=== PATIENT | male | born 1945 | race Two or more races ===

== ENCOUNTER → 2021-06-10 | Outpatient (CLI) | payer OTHER ==
[~2021-06-10] MED LIST: AMLO-496; ATOR10TA52; CARV6.2551; CLOP75TA70; LISI40TA11; METF-370
== END | disposition home or self-care (01) ==
LOC: LAB 15:44
PROVIDERS: ATTEND Internal Medicine
DX: E11.9 Type 2 diabetes mellitus without complications (principal); N40.0 Benign prostatic hyperplasia without lower urinary tract symptoms
CPT/HCPCS: 36415; 83036; 84153; 84154

== ENCOUNTER 2023-02-14 20:08 | Inpatient (IN) | payer OTHER ==
[~2023-02-14] VITALS: Ht 172.7 cm; Wt 68.0 kg
[~2023-02-14 20:08] MED LIST changes: -AMLO-496; +AMLO1TAB23; -ATOR10TA52; +ATOR10TA52 PO; -CARV6.2551; +CARV6.2551 PO; -CLOP75TA70; +CLOP75TA70 PO; -LISI40TA11; +LISI40TA16 PO
[2023-02-14] MEDS ORDERED: SODIUM CHLORIDE 0.9% 1,000 ML IV ONE (20:45)
[2023-02-14] MEDS ORDERED: ONDANSETRON HCL 4 MG/2 ML VIAL IV ONE (20:45)
[2023-02-14] MEDS ORDERED: MORPHINE SULFATE 4 MG/ML SYR/VIAL IV ONE (20:45)
[2023-02-14 22:08] LABS: Basophils # (auto) 0 10 ^3/uL (0-0.2); Basophils % (auto) 0.2 % (0.0-2.0); Eosinophils # (auto) 0 10 ^3/uL (0-0.8); Eosinophils % (auto) 0.3 % (0.0-7.0); Hematocrit 50.6 % (41.0-53.0); Lymphocytes # (auto) 1.6 10 ^3/uL (0.4-5.4); Lymphocytes % (auto) 11.9 % (10.0-50.0); Mean Corpuscular Hgb Conc. 33.5 g/dL (32.0-36.0); Mean Corpuscular Volume 92.6 fL (80.0-100.0); Monocytes # (auto) 1.2 10 ^3/uL (0-1.3); Monocytes % (auto) 9.3 % (0.0-12.0); Neutrophils # (auto) 10.3 10 ^3/uL (1.6-8.6); Neutrophils % (auto) 78.3 % (37.0-80.0); Red Blood Cells 5.47 10^6/uL (4.5-5.90); Red Cell Distribution Width 14.8 % (11.8-14.3); White Blood Cell 13.1 10^3/uL (4.4-10.8)
[2023-02-14 22:20] LABS: Lactic Acid w/Reflex 2.5 mmol/L (0.4-2.0)
[2023-02-14 22:25] LABS: INR 1.1 (0.9-1.15); Prothrombin Time 11.5 sec (9.3-11.8)
[2023-02-14 22:47] LABS: Albumin 4.7 g/dL (3.2-4.8); Alkaline Phosphatase 93 U/L (46-116); Aspartate Aminotransferase < 8 U/L (13-40); BUN/Creatinine Ratio 6.6 (10.0-20.0); Blood Urea Nitrogen 8 mg/dL (9-23); Calcium 9.6 mg/dL (8.7-10.4); Carbon Dioxide 18.2 mmol/L (20-30); Glucose 161 mg/dL (74-106); Lipase 38 U/L (12-53); Magnesium 1.9 mg/dL (1.6-2.6)
[2023-02-14 22:48] LABS: Bilirubin, Total 1.8 mg/dL (0.2-1.0); Total Protein 7.8 g/dL (5.7-8.2)
[2023-02-14 23:03] LABS: Alanine Aminotransferase < 9 U/L (7-40)
[2023-02-14 23:06] LABS: Anion Gap 12.8 (5-15); Chloride 104 mmol/L (98-107); Potassium 3.7 mmol/L (3.5-5.1); Sodium 135 mmol/L (136-145)
[2023-02-15] MEDS ORDERED: MORPHINE SULFATE INJ 2 MG/ml SYRG IV PRN (02:45)
[2023-02-15] MEDS ORDERED: NITROGLYCERIN 0.4 MG SL TAB SL PRN (02:45)
[2023-02-15] MEDS ORDERED: hydrALAZINE HCL 20 MG/ML VL IV PRN (02:45)
[2023-02-15] MEDS ORDERED: ONDANSETRON HCL 4 MG/2 ML VIAL IV PRN (02:45)
[2023-02-15] MEDS: SODIUM CHLORIDE 0.9% 1,000 ML IV SCH ×3 (02:45→23:59)
[2023-02-15 08:00] VITALS: PULSE 56; RESP 16; O2SAT 96
[2023-02-15] MEDS ORDERED: SODIUM CHLORIDE 0.9% 1,900 ML IV ONE (08:00)
[2023-02-15] MEDS: MORPHINE SULFATE INJ 2 MG/ml SYRG IV PRN (08:41)
[2023-02-15] MEDS ORDERED: IOHEXOL 300 MG/ML 100ML BOTTLE IJ ONE (09:43)
[2023-02-15] MEDS: PANTOPRAZOLE 40 MG/10 ML VIAL INJ IV SCH (10:01)
[2023-02-15 10:39] LABS: Basophils # (auto) 0 10 ^3/uL (0-0.2); Basophils % (auto) 0.3 % (0.0-2.0); Eosinophils # (auto) 0.2 10 ^3/uL (0-0.8); Eosinophils % (auto) 2.4 % (0.0-7.0); Hematocrit 39.9 % (41.0-53.0); Hemoglobin 13.2 g/dL (13.5-17.5); Lymphocytes # (auto) 2.5 10 ^3/uL (0.4-5.4); Mean Corpuscular Hemoglobin 30.8 pg (28.0-32.0); Mean Corpuscular Hgb Conc. 33.2 g/dL (32.0-36.0); Mean Corpuscular Volume 92.6 fL (80.0-100.0); Monocytes # (auto) 1.1 10 ^3/uL (0-1.3); Monocytes % (auto) 11.7 % (0.0-12.0); Neutrophils # (auto) 5.8 10 ^3/uL (1.6-8.6); Neutrophils % (auto) 59.6 % (37.0-80.0); Nucleated Red Blood Cells % 0.1 %; Red Cell Distribution Width 14.8 % (11.8-14.3); White Blood Cell 9.7 10^3/uL (4.4-10.8)
[2023-02-15 11:28] LABS: Albumin 3.4 g/dL (3.2-4.8); Alkaline Phosphatase 66 U/L (46-116); Anion Gap 9.2 (5-15); Aspartate Aminotransferase < 8 U/L (13-40); BUN/Creatinine Ratio 12.1 (10.0-20.0); Bilirubin, Total 1.1 mg/dL (0.2-1.0); Blood Urea Nitrogen 11 mg/dL (9-23); Calcium 7.8 mg/dL (8.5-10.1); Carbon Dioxide 19.8 mmol/L (20-30); Chloride 112 mmol/L (98-107); Glucose 94 mg/dL (74-106); Potassium 3.5 mmol/L (3.5-5.1); Sodium 141 mmol/L (136-145); Total Protein 5.5 g/dL (5.7-8.2)
[2023-02-15 11:30] LABS: LDL Cholesterol 30 mg/dL (< 100); Triglycerides 65 mg/dL (< 150)
[2023-02-15 11:32] LABS: Cholesterol 73 mg/dL (< 200); HDL Cholesterol 31 mg/dL (40-59)
[2023-02-15 11:36] LABS: Alanine Aminotransferase < 9 U/L (7-40)
[2023-02-15 13:56] LABS: Urine Bacteria NONE SEEN /hpf (None Seen); Urine Blood Negative /uL (Negative); Urine Clarity Clear (Clear); Urine Protein, UAD Negative (Negative); Urine Specific Gravity 1.029 (1.001-1.035); Urine Urobilinogen Normal (Negative); Urine WBC 1 /hpf (0 - 3)
[2023-02-15 13:59] LABS: Urine Color Straw (Yellow)
[2023-02-15 14:18] LABS: Amphetamine Screen, Urine Neg (NEGATIVE); Barbiturate Scree,Urine Neg (NEGATIVE); Benzodiazephine Screen, Urine Neg (NEGATIVE); Cocaine Screen, Urine Neg (NEGATIVE); Opiate Scree,Urine Pos (NEGATIVE)
[2023-02-15 14:19] LABS: Cannabinoid Screen, Urine Pos (NEGATIVE); Phencyclidine Screen, Urine Neg (NEGATIVE)
[2023-02-15] MEDS ORDERED: CYANOCOBALAMIN (B-12) 1000 MCG/1 ML VIAL IM ONE (15:45)
[2023-02-15 17:30] VITALS: BP 146/73; PULSE 53
[2023-02-15 20:15] VITALS: BP 158/67; PULSE 53; PULSE 63; RESP 16; TEMP 98.3; O2SAT 97
[2023-02-15 22:00] VITALS: BP 158/67; PULSE 53; RESP 16; TEMP 98.3; O2SAT 97
[2023-02-16] VITALS (10 sets, daily range): BP systolic 132–159; BP diastolic 48–88; PULSE 49–92; RESP 16–19; TEMP 97.3–98; O2SAT 94–100
[2023-02-16 06:02] LABS: Basophils # (auto) 0 10 ^3/uL (0-0.2); Basophils % (auto) 0.6 % (0.0-2.0); Eosinophils # (auto) 0.4 10 ^3/uL (0-0.8); Eosinophils % (auto) 5.3 % (0.0-7.0); Hematocrit 38.4 % (41.0-53.0); Hemoglobin 13.1 g/dL (13.5-17.5); Lymphocytes # (auto) 1.5 10 ^3/uL (0.4-5.4); Lymphocytes % (auto) 19.2 % (10.0-50.0); Mean Corpuscular Hemoglobin 31.2 pg (28.0-32.0); Mean Corpuscular Volume 91.8 fL (80.0-100.0); Monocytes # (auto) 0.8 10 ^3/uL (0-1.3); Monocytes % (auto) 10.3 % (0.0-12.0); Neutrophils % (auto) 64.6 % (37.0-80.0); Red Blood Cells 4.18 10^6/uL (4.5-5.90); Red Cell Distribution Width 14.5 % (11.8-14.3); White Blood Cell 7.7 10^3/uL (4.4-10.8)
[2023-02-16 06:20] LABS: Albumin 3.4 g/dL (3.2-4.8); Alkaline Phosphatase 69 U/L (46-116); Anion Gap 8.2 (5-15); Aspartate Aminotransferase 12 U/L (13-40); BUN/Creatinine Ratio 11.6 (10.0-20.0); Blood Urea Nitrogen 10 mg/dL (9-23); Calcium 8.4 mg/dL (8.5-10.1); Carbon Dioxide 22.8 mmol/L (20-30); Chloride 112 mmol/L (98-107); Creatine Kinase IFCC 286 U/L (46-171); Glucose 78 mg/dL (74-106); Magnesium 1.7 mg/dL (1.6-2.6); Potassium 3.8 mmol/L (3.5-5.1); Sodium 143 mmol/L (136-145)
[2023-02-16 06:21] LABS: Total Protein 5.3 g/dL (5.7-8.2)
[2023-02-16 06:41] LABS: Alanine Aminotransferase < 9 U/L (7-40)
[2023-02-16 08:07] LABS: PSA Free 1.4 ng/mL; Prostate Specific Antigen 11.4 ng/mL (0.0-4.0)
[2023-02-16] MEDS ORDERED: ceFAZolin 1GM/50ML 100 ML IV ONE (08:40)
[2023-02-16] MEDS ORDERED: ACCU-CHEK COMFORT CURVE STRIP VI ONE (09:15)
[2023-02-16] MEDS ORDERED: HYDROmorphone HCL 2 MG/ML VL/or syr IV PRN (09:15)
[2023-02-16] MEDS ORDERED: MORPHINE SULFATE INJ 2 MG/ml SYRG IV PRN (09:15)
[2023-02-16] MEDS ORDERED: METOCLOPRAMIDE HCL 5MG/ml INJ 2ml VIAL IV PRN (09:15)
[2023-02-16] MEDS ORDERED: fentaNYL CITRATE 100 MCG/2 ML VL ONE (09:15)
[2023-02-16] MEDS ORDERED: HYDROmorphone HCL 2 MG/ML VL/or syr ONE (09:15)
[2023-02-16] MEDS ORDERED: DexAMETHasone SOD PHOS 10MG/1ML VIAL INJ ONE (09:16)
[2023-02-16] MEDS ORDERED: MIDAZOLAM HCL 2MG/2ML 2ml VIAL (1mg/ml) ONE (09:16)
[2023-02-16] MEDS ORDERED: GLYCOPYRROLATE 0.2 MG/ML 1ML VIAL ONE (09:16)
[2023-02-16] MEDS ORDERED: ONDANSETRON HCL 4 MG/2 ML VIAL ONE (09:16)
[2023-02-16] MEDS ORDERED: NEOSTIGMINE 1 MG/ML INJ (10mg/10ML VIAL) ONE (09:16)
[2023-02-16] MEDS ORDERED: SODIUM CHLORIDE LOCK 10 ML ONE (09:16)
[2023-02-16] MEDS ORDERED: fentaNYL CITRATE 5 ML ONE (09:16)
[2023-02-16] MEDS ORDERED: ETOMIDATE (2MG/ML) 20ML VIAL IV ONE (09:16)
[2023-02-16] MEDS ORDERED: POVIDONE IODINE 10 % TOPICAL OINT 30GM TOP ONE (11:13)
[2023-02-16] MEDS: HYDROmorphone HCL 2 MG/ML VL/or syr IV PRN ×2 (11:45→11:56)
[2023-02-16] MEDS: PANTOPRAZOLE 40 MG/10 ML VIAL INJ IV SCH (13:10)
[2023-02-16] MEDS: CYANOCOBALAMIN (B-12) 1000 MCG/1 ML VIAL IM SCH (13:10)
[2023-02-16] MEDS ORDERED: cefTRIAXone 1GM/50ML D5W 50 ML IV ONE ×2 (13:45→14:17)
[2023-02-16] MEDS ORDERED: GABA-1250 PO (14:11)
[2023-02-16] MEDS ORDERED: NITR0.4S29 SL (14:11)
[2023-02-16] MEDS ORDERED: NIFE1TAB31 PO (14:11)
[2023-02-16] MEDS ORDERED: TRAM50TA2 PO (14:11)
[2023-02-16] MEDS ORDERED: metroNIDAZOLE 500MG/100ML 100 ML IV ONE ×2 (14:30→15:25)
[2023-02-16] MEDS: MORPHINE SULFATE INJ 2 MG/ml SYRG IV PRN ×2 (16:31→21:42)
[2023-02-16] MEDS: KETOROLAC TROMETH 30 MG/ML 1ML VIAL IV PRN (17:28)
[2023-02-16] MEDS: SODIUM CHLORIDE 0.9% 1,000 ML IV SCH (18:45)
[2023-02-16] MEDS: metroNIDAZOLE 500MG/100ML 100 ML IV SCH (21:41)
[2023-02-17] VITALS (7 sets, daily range): BP systolic 134–145; BP diastolic 69–75; PULSE 58–78; RESP 18–20; TEMP 97.9–99.3; O2SAT 95–97
[2023-02-17] MEDS: KETOROLAC TROMETH 30 MG/ML 1ML VIAL IV PRN ×3 (00:26→22:02)
[2023-02-17] MEDS: SODIUM CHLORIDE 0.9% 1,000 ML IV SCH (00:26)
[2023-02-17] MEDS: metroNIDAZOLE 500MG/100ML 100 ML IV SCH ×3 (05:35→22:01)
[2023-02-17] MEDS: MORPHINE SULFATE INJ 2 MG/ml SYRG IV PRN ×3 (05:36→18:16)
[2023-02-17 06:59] LABS: Basophils # (auto) 0 10 ^3/uL (0-0.2); Basophils % (auto) 0.4 % (0.0-2.0); Eosinophils # (auto) 0.2 10 ^3/uL (0-0.8); Eosinophils % (auto) 1.8 % (0.0-7.0); Hematocrit 37.5 % (41.0-53.0); Hemoglobin 12.7 g/dL (13.5-17.5); Lymphocytes # (auto) 1.5 10 ^3/uL (0.4-5.4); Lymphocytes % (auto) 15.9 % (10.0-50.0); Mean Corpuscular Hemoglobin 30.9 pg (28.0-32.0); Mean Corpuscular Hgb Conc. 33.9 g/dL (32.0-36.0); Mean Corpuscular Volume 91.1 fL (80.0-100.0); Monocytes % (auto) 10.5 % (0.0-12.0); Neutrophils # (auto) 6.9 10 ^3/uL (1.6-8.6); Neutrophils % (auto) 71.4 % (37.0-80.0); Red Blood Cells 4.11 10^6/uL (4.5-5.90); Red Cell Distribution Width 14.5 % (11.8-14.3); White Blood Cell 9.7 10^3/uL (4.4-10.8)
[2023-02-17 07:18] LABS: Albumin 3.2 g/dL (3.2-4.8); Alkaline Phosphatase 62 U/L (46-116); Anion Gap 11.8 (5-15); Aspartate Aminotransferase 14 U/L (13-40); Calcium 7.8 mg/dL (8.5-10.1); Carbon Dioxide 20.2 mmol/L (20-30); Chloride 107 mmol/L (98-107); Glucose 81 mg/dL (74-106); Sodium 139 mmol/L (136-145)
[2023-02-17 07:19] LABS: Creatine Kinase IFCC 170 U/L (46-171); Total Protein 5.2 g/dL (5.7-8.2)
[2023-02-17 07:22] LABS: Alanine Aminotransferase < 9 U/L (7-40); BUN/Creatinine Ratio 7.7 (10.0-20.0); Blood Urea Nitrogen < 5 mg/dL (9-23)
[2023-02-17 07:26] LABS: Potassium 2.9 mmol/L (3.5-5.1)
[2023-02-17] MEDS ORDERED: POTASSIUM CHL 20 Meq TABLET PO ONE (08:00)
[2023-02-17] MEDS ORDERED: POTASSIUM CHL 20MEQ/100ML 100 ML IV ONE (09:15)
[2023-02-17] MEDS: cefTRIAXone 1GM/50ML D5W 50 ML IV SCH (10:44)
[2023-02-17] MEDS: PANTOPRAZOLE 40 MG/10 ML VIAL INJ IV SCH (10:57)
[2023-02-17] MEDS: CYANOCOBALAMIN (B-12) 1000 MCG/1 ML VIAL IM SCH (11:00)
[2023-02-17] MEDS ORDERED: D5W/SOD CHLO 0.9% 1,000 ML IV SCH (17:15)
[2023-02-17] MEDS ORDERED: SODIUM CHLORIDE 0.9% 1,000 ML IV SCH (17:30)
[2023-02-17] MEDS ORDERED: DEXTROSE (50%) 50ML SYRG IV PRN (17:30)
[2023-02-17] MEDS: InsuLIN REG 1unit/0.01ml Soln (100units/ml) SC SCH ×2 (17:42→23:59)
[2023-02-17] MEDS: ACCU-CHEK COMFORT CURVE STRIP VI SCH ×2 (17:42→23:59)
[2023-02-17] MEDS: D5W/SOD CHLO 0.9% 1,000 ML IV SCH ×2 (18:04→22:01)
[2023-02-18 05:43] LABS: Basophils # (auto) 0 10 ^3/uL (0-0.2); Basophils % (auto) 0.4 % (0.0-2.0); Eosinophils # (auto) 0.3 10 ^3/uL (0-0.8); Eosinophils % (auto) 2.8 % (0.0-7.0); Hematocrit 33.7 % (41.0-53.0); Hemoglobin 11.5 g/dL (13.5-17.5); Lymphocytes # (auto) 1.1 10 ^3/uL (0.4-5.4); Mean Corpuscular Hemoglobin 31.4 pg (28.0-32.0); Mean Corpuscular Volume 92.3 fL (80.0-100.0); Monocytes % (auto) 9.3 % (0.0-12.0); Neutrophils # (auto) 8.3 10 ^3/uL (1.6-8.6); Neutrophils % (auto) 77.5 % (37.0-80.0); Red Blood Cells 3.66 10^6/uL (4.5-5.90); Red Cell Distribution Width 14.6 % (11.8-14.3); White Blood Cell 10.6 10^3/uL (4.4-10.8)
[2023-02-18] MEDS: ACCU-CHEK COMFORT CURVE STRIP VI SCH ×3 (05:50→18:00)
[2023-02-18] MEDS: InsuLIN REG 1unit/0.01ml Soln (100units/ml) SC SCH ×3 (05:50→18:00)
[2023-02-18 05:57] LABS: Chloride 110 mmol/L (98-107); Potassium 3.1 mmol/L (3.5-5.1); Sodium 141 mmol/L (136-145)
[2023-02-18 05:58] LABS: Anion Gap 3.5 (5-15); Carbon Dioxide 27.5 mmol/L (20-30)
[2023-02-18 06:03] LABS: BUN/Creatinine Ratio 8.7 (10.0-20.0); Blood Urea Nitrogen 6 mg/dL (9-23); Glucose 110 mg/dL (74-106)
[2023-02-18 06:04] LABS: Magnesium 1.8 mg/dL (1.6-2.6)
[2023-02-18] MEDS: metroNIDAZOLE 500MG/100ML 100 ML IV SCH ×3 (06:08→22:07)
[2023-02-18] MEDS ORDERED: POTASSIUM CHL 20MEQ/100ML 100 ML IV ONE (07:45)
[2023-02-18 08:00] VITALS: PULSE 65; RESP 18
[2023-02-18 09:29] VITALS: BP 150/90; PULSE 64; RESP 20; TEMP 97.7; O2SAT 95
[2023-02-18] MEDS: PANTOPRAZOLE 40 MG/10 ML VIAL INJ IV SCH (11:32)
[2023-02-18] MEDS: cefTRIAXone 1GM/50ML D5W 50 ML IV SCH (11:33)
[2023-02-18] MEDS: CYANOCOBALAMIN (B-12) 1000 MCG/1 ML VIAL IM SCH (11:33)
[2023-02-18] MEDS: KETOROLAC TROMETH 30 MG/ML 1ML VIAL IV PRN (11:41)
[2023-02-18 12:50] VITALS: BP 158/76; PULSE 56; RESP 20; TEMP 97.6; O2SAT 95
[2023-02-18 17:06] VITALS: BP 137/77; PULSE 76; RESP 20; TEMP 98.1; O2SAT 96
[2023-02-18 20:00] VITALS: PULSE 84; RESP 18
[2023-02-18] MEDS: D5W/SOD CHLO 0.9% 1,000 ML IV SCH (20:40)
[2023-02-18 22:00] VITALS: BP 124/76; PULSE 82; RESP 18; TEMP 98.4; O2SAT 96
[2023-02-19] VITALS (8 sets, daily range): BP systolic 134–157; BP diastolic 59–85; PULSE 60–68; RESP 16–20; TEMP 97.6–99.1; O2SAT 94–100
[2023-02-19] MEDS: ACCU-CHEK COMFORT CURVE STRIP VI SCH ×4 (06:00→18:11)
[2023-02-19] MEDS: InsuLIN REG 1unit/0.01ml Soln (100units/ml) SC SCH ×4 (06:00→18:00)
[2023-02-19] MEDS: metroNIDAZOLE 500MG/100ML 100 ML IV SCH ×3 (06:00→21:45)
[2023-02-19] MEDS: CYANOCOBALAMIN (B-12) 1000 MCG/1 ML VIAL IM SCH (10:14)
[2023-02-19] MEDS: cefTRIAXone 1GM/50ML D5W 50 ML IV SCH (10:14)
[2023-02-19] MEDS: PANTOPRAZOLE 40 MG/10 ML VIAL INJ IV SCH (10:15)
[2023-02-19] MEDS: D5W/SOD CHLO 0.9% 1,000 ML IV SCH ×2 (10:15→23:20)
[2023-02-20] VITALS (7 sets, daily range): BP systolic 138–151; BP diastolic 70–82; PULSE 50–70; RESP 16–20; TEMP 97.6–98.8; O2SAT 93–100
[2023-02-20] MEDS: ACCU-CHEK COMFORT CURVE STRIP VI SCH ×3 (00:04→14:57)
[2023-02-20] MEDS: metroNIDAZOLE 500MG/100ML 100 ML IV SCH ×3 (05:08→21:22)
[2023-02-20] MEDS: InsuLIN REG 1unit/0.01ml Soln (100units/ml) SC SCH ×3 (05:09→12:00)
[2023-02-20] MEDS: cefTRIAXone 1GM/50ML D5W 50 ML IV SCH (09:13)
[2023-02-20] MEDS: D5W/SOD CHLO 0.9% 1,000 ML IV SCH (09:13)
[2023-02-20] MEDS: CYANOCOBALAMIN (B-12) 1000 MCG/1 ML VIAL IM SCH (09:15)
[2023-02-20] MEDS: PANTOPRAZOLE 40 MG/10 ML VIAL INJ IV SCH (09:15)
[2023-02-20] MEDS ORDERED: ENOXAPARIN SOD 30 MG/0.3 ML SYRINGE SC ONE (17:00)
[2023-02-21] VITALS (8 sets, daily range): BP systolic 138–144; BP diastolic 66–82; PULSE 51–60; RESP 18–20; TEMP 97.6–98.3; O2SAT 96–97
[2023-02-21] MEDS: KETOROLAC TROMETH 30 MG/ML 1ML VIAL IV PRN ×2 (01:33→07:59)
[2023-02-21] MEDS: metroNIDAZOLE 500MG/100ML 100 ML IV SCH ×3 (05:04→21:06)
[2023-02-21] MEDS: cefTRIAXone 1GM/50ML D5W 50 ML IV SCH (10:00)
[2023-02-21] MEDS: PANTOPRAZOLE 40 MG/10 ML VIAL INJ IV SCH (11:31)
[2023-02-21] MEDS: ENOXAPARIN SOD 30 MG/0.3 ML SYRINGE SC SCH (11:36)
[2023-02-21] MEDS: CYANOCOBALAMIN (B-12) 1000 MCG/1 ML VIAL IM SCH (11:46)
[2023-02-22] VITALS (7 sets, daily range): BP systolic 120–158; BP diastolic 66–82; PULSE 57–81; RESP 18–20; TEMP 36.8; O2SAT 94–97
[2023-02-22] MEDS: MORPHINE SULFATE INJ 2 MG/ml SYRG IV PRN (05:00)
[2023-02-22] MEDS: metroNIDAZOLE 500MG/100ML 100 ML IV SCH ×3 (05:01→21:09)
[2023-02-22 06:40] LABS: Basophils # (auto) 0 10 ^3/uL (0-0.2); Basophils % (auto) 0.6 % (0.0-2.0); Eosinophils # (auto) 0.5 10 ^3/uL (0-0.8); Eosinophils % (auto) 7.1 % (0.0-7.0); Hematocrit 33.6 % (41.0-53.0); Hemoglobin 11.6 g/dL (13.5-17.5); Lymphocytes # (auto) 1.4 10 ^3/uL (0.4-5.4); Lymphocytes % (auto) 19.2 % (10.0-50.0); Mean Corpuscular Hemoglobin 31.2 pg (28.0-32.0); Mean Corpuscular Hgb Conc. 34.4 g/dL (32.0-36.0); Mean Corpuscular Volume 90.6 fL (80.0-100.0); Monocytes # (auto) 0.7 10 ^3/uL (0-1.3); Monocytes % (auto) 9.9 % (0.0-12.0); Neutrophils # (auto) 4.6 10 ^3/uL (1.6-8.6); Neutrophils % (auto) 63.2 % (37.0-80.0); Red Blood Cells 3.71 10^6/uL (4.5-5.90); Red Cell Distribution Width 14.9 % (11.8-14.3); White Blood Cell 7.3 10^3/uL (4.4-10.8)
[2023-02-22 06:51] LABS: Chloride 107 mmol/L (98-107); Sodium 140 mmol/L (136-145)
[2023-02-22 06:52] LABS: Anion Gap 8.2 (5-15); Carbon Dioxide 24.8 mmol/L (20-30)
[2023-02-22 06:53] LABS: Calcium 7.9 mg/dL (8.7-10.4)
[2023-02-22 06:57] LABS: Glucose 104 mg/dL (74-106)
[2023-02-22 06:58] LABS: BUN/Creatinine Ratio 7.5 (10.0-20.0); Blood Urea Nitrogen 5 mg/dL (9-23)
[2023-02-22 07:15] LABS: Potassium 2.6 mmol/L (3.5-5.1)
[2023-02-22] MEDS ORDERED: POTASSIUM CHL 20MEQ/100ML 100 ML IV ONE (08:45)
[2023-02-22] MEDS ORDERED: POTASSIUM EFFERVESENT TAB 25 MEQ PO ONE (08:45)
[2023-02-22] MEDS: cefTRIAXone 1GM/50ML D5W 50 ML IV SCH (09:43)
[2023-02-22] MEDS: PANTOPRAZOLE 40 MG/10 ML VIAL INJ IV SCH (09:44)
[2023-02-22] MEDS: ENOXAPARIN SOD 30 MG/0.3 ML SYRINGE SC SCH (09:44)
[2023-02-22] MEDS: CYANOCOBALAMIN (B-12) 1000 MCG/1 ML VIAL IM SCH (09:44)
[2023-02-22 18:00] LABS: Albumin 3.4 g/dL (3.2-4.8); Alkaline Phosphatase 58 U/L (46-116); Anion Gap 7.5 (5-15); Aspartate Aminotransferase 10 U/L (13-40); Bilirubin, Total 0.5 mg/dL (0.2-1.0); Calcium 7.8 mg/dL (8.7-10.4); Carbon Dioxide 25.5 mmol/L (20-30); Chloride 108 mmol/L (98-107); Glucose 107 mg/dL (74-106); Sodium 141 mmol/L (136-145); Total Protein 5.5 g/dL (5.7-8.2)
[2023-02-22 18:34] LABS: Alanine Aminotransferase 9 U/L (7-40); BUN/Creatinine Ratio 7.8 (10.0-20.0); Blood Urea Nitrogen < 5 mg/dL (9-23)
[2023-02-22 18:36] LABS: Potassium 2.9 mmol/L (3.5-5.1)
[2023-02-23 05:00] VITALS: BP 131/76; PULSE 55; RESP 18; TEMP 98.1; O2SAT 94
[2023-02-23] MEDS: metroNIDAZOLE 500MG/100ML 100 ML IV SCH ×2 (06:07→14:00)
[2023-02-23 07:53] VITALS: RESP 20
[2023-02-23 08:00] VITALS: PULSE 56
[2023-02-23 09:00] VITALS: BP 147/66; PULSE 58; RESP 19; TEMP 97.8; O2SAT 98
[2023-02-23] MEDS: PANTOPRAZOLE 40 MG/10 ML VIAL INJ IV SCH (09:16)
[2023-02-23] MEDS: CYANOCOBALAMIN (B-12) 1000 MCG/1 ML VIAL IM SCH (09:16)
[2023-02-23] MEDS: cefTRIAXone 1GM/50ML D5W 50 ML IV SCH (09:16)
[2023-02-23] MEDS ORDERED: ENOXAPARIN SOD 40 MG/0.4 ML SYRINGE SC SCH (10:00)
[2023-02-23] MEDS ORDERED: POTASSIUM CHL 20MEQ/100ML 100 ML IV ONE (12:45)
[2023-02-23 13:00] VITALS: BP 130/72; PULSE 63; RESP 19; TEMP 97.6; O2SAT 95
[2023-02-23] MEDS ORDERED: TRAM100T36 PO (15:03)
[2023-02-23] MEDS ORDERED: POTA10TA51 PO (15:03)
[2023-02-23] MEDS ORDERED: DOCU-265 PO (15:03)
[2023-02-23] MEDS ORDERED: NAP500T PO (15:05)
== END 2023-02-23 17:30 | disposition home or self-care (01) | DRG 330 ==
LOC: ER 20:08 → TELE 02-15 02:44 → TELE-WESTW 02-15 15:06
PROVIDERS: ADMIT Internal Medicine; ATTEND Student in an Organized Health Care Education/Training Program
PROC: 0DTF0ZZ Resection of Right Large Intestine, Open Approach (ICD-10-PCS; principal; 2023-02-16 09:25)
PROC: 0D1L0Z4 Bypass Transverse Colon to Cutaneous, Open Approach (ICD-10-PCS; 2023-02-16 09:25)
DX: K56.609 Unspecified intestinal obstruction, unspecified as to partial versus complete obstruction (principal); C77.9 Secondary and unspecified malignant neoplasm of lymph node, unspecified; C78.6 Secondary malignant neoplasm of retroperitoneum and peritoneum; C78.7 Secondary malignant neoplasm of liver and intrahepatic bile duct; I10 Essential (primary) hypertension; E78.5 Hyperlipidemia, unspecified; G62.9 Polyneuropathy, unspecified; I25.10 Atherosclerotic heart disease of native coronary artery without angina pectoris; F12.10 Cannabis abuse, uncomplicated; I73.9 Peripheral vascular disease, unspecified; I25.2 Old myocardial infarction; Z85.038 Personal history of other malignant neoplasm of large intestine; Z98.61 Coronary angioplasty status; Z91.030 Bee allergy status; Z87.891 Personal history of nicotine dependence
CPT/HCPCS: 36415; 71045; 71260; 74176; 74177; 80048; 80053; 80061; 80307; 81001; 82306; 82378; 82550; 82607; 82962; 83036; 83605; 83615; 83690; 83735; 83880; 84132; 84154; 84443; 84484; 85025; 85610; 85730; 86301; 86850; 86900; 86901; 87040; 87081; 93005; 93306; 93925; 96361; 96374; 96375; 97163; C9113; G0378; J0690; J0696; J1100; J1885; J2250; J2405; J3480; J3490; J7042

== ENCOUNTER → 2023-04-07 | Outpatient (CLI) | payer OTHER ==
[~2023-04-07] MED LIST changes: -AMLO1TAB23; -CARV6.2551 PO; -CLOP75TA70 PO; +DOCU-265 PO; +GABA-1250 PO; +NAP500T PO; +NIFE1TAB31 PO; +NITR0.4S29 SL; +POTA10TA51 PO; +TRAM50TA2 PO
[2023-04-07 07:19] LABS: Basophils # (auto) 0.1 10 ^3/uL (0-0.2); Basophils % (auto) 0.8 % (0.0-2.0); Eosinophils # (auto) 0.9 10 ^3/uL (0-0.8); Eosinophils % (auto) 10.2 % (0.0-7.0); Hematocrit 42.5 % (41.0-53.0); Hemoglobin 14.3 g/dL (13.5-17.5); Lymphocytes # (auto) 2.1 10 ^3/uL (0.4-5.4); Lymphocytes % (auto) 25.6 % (10.0-50.0); Mean Corpuscular Hemoglobin 31.6 pg (28.0-32.0); Mean Corpuscular Hgb Conc. 33.6 g/dL (32.0-36.0); Mean Corpuscular Volume 94.2 fL (80.0-100.0); Monocytes # (auto) 0.7 10 ^3/uL (0-1.3); Monocytes % (auto) 8.7 % (0.0-12.0); Neutrophils # (auto) 4.6 10 ^3/uL (1.6-8.6); Neutrophils % (auto) 54.7 % (37.0-80.0); Nucleated Red Blood Cells % 0.1 %; Red Blood Cells 4.51 10^6/uL (4.5-5.90); Red Cell Distribution Width 15.5 % (11.8-14.3); White Blood Cell 8.4 10^3/uL (4.4-10.8)
[2023-04-07 07:43] LABS: Alanine Aminotransferase 20 U/L (7-40); Albumin 4.5 g/dL (3.2-4.8); Alkaline Phosphatase 94 U/L (46-116); Anion Gap 9 (5-15); Aspartate Aminotransferase 14 U/L (13-40); BUN/Creatinine Ratio 8.4 (10.0-20.0); Bilirubin, Total 0.9 mg/dL (0.2-1.0); Blood Urea Nitrogen 7 mg/dL (9-23); Calcium 9.3 mg/dL (8.7-10.4); Carbon Dioxide 23 mmol/L (20-30); Chloride 110 mmol/L (98-107); Potassium 3.7 mmol/L (3.5-5.1); Sodium 142 mmol/L (136-145)
[2023-04-07 07:44] LABS: Total Protein 7.3 g/dL (5.7-8.2)
[2023-04-07 07:54] LABS: Glucose 128 mg/dL (74-106)
== END | disposition home or self-care (01) ==
LOC: LAB 06:38
PROVIDERS: ATTEND Internal Medicine
DX: C18.9 Malignant neoplasm of colon, unspecified (principal)
CPT/HCPCS: 36415; 80053; 82378; 83615; 85025